=== PATIENT | female | born 1980 | race Caucasian/White ===

== ENCOUNTER → 2024-09-14 | Outpatient (CLI) | payer OTHER | LOC: M PLAIMG 08:27 | PROVIDERS: ATTEND Neurological Surgery | DX: M51.16 Intervertebral disc disorders with radiculopathy, lumbar region (principal); M47.816 Spondylosis without myelopathy or radiculopathy, lumbar region; M51.361 Other intervertebral disc degeneration, lumbar region with lower extremity pain only ==